=== PATIENT | male | born 1955 | race Asian ===

== ENCOUNTER 2020-05-03 21:38 | Emergency (ER) | payer MEDICARE ==
[~2020-05-03] VITALS: Ht 172.7 cm; Wt 63.5 kg
--- NOTE | 2020-05-03 21:50 | NUR ---
ED Nurse Note: ambulated to ed from home c/o 10 sharp right flank pain x 2 days. reports vomitting and "black" diarrhea. changed into gown; attached to moniotor. All safety measures met.
[2020-05-03 22:00] VITALS: BP 159/98
--- NOTE | 2020-05-03 22:00 | NUR ---
ED Nurse Note: IV access established. blood and urine collected; sent down to lab. Medicated as prescribed; patient tolerated well.
--- NOTE | 2020-05-03 22:07 | Emergency Room Report ---
History of Present Illness General Chief Complaint: Dyspnea/Respdistress Source: Patient Present Illness HPI This is a 65-year-old [place] male with a history of diabetes and hyperlipidemia. He presents with chief plaint of right flank pain. Onset for last 3 days. Is on and off but more severe in the last few hours. Pain is to the right flank. Pain is sharp. Pain is 8 out of 10. He has nausea and vomiting with this. No radiation of the pain. He has been taking Pepto-Bismol because of the vomiting. Now he is been having diarrhea which she described as dark. Denies any blood in his vomitus. No hematuria. No urinary complaint. No weakness. Nothing made it better. Any movement made it worse. Never had this problem before. 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 Patient History Past Medical History: see triage record, old chart reviewed, DM Past Surgical History: none Pertinent Family History: none Social History: Denies: drug use Immunizations: other Reviewed Nursing Documentation: PMH: Agreed; PSxH: Agreed Nursing Documentation-PMH Past Medical History: No Stated History Review of Systems Eye: Denies: eye pain, blurred vision ENT: Denies: ear pain, nose congestion, throat swelling Respiratory: Denies: cough, shortness of breath Cardiovascular: Denies: chest pain, palpitations Gastrointestinal: Reports: other - Flank pain; Denies: abdominal pain, diarrhea , nausea, vomiting Musculoskeletal: Denies: back pain, joint pain Skin: Denies: rash Neurological: Denies: headache, numbness Endocrine: Denies: increased thirst, increased urine Hematologic/Lymphatic: Denies: easy bruising All Other Systems: negative except mentioned in HPI Physical Exam Vital Signs Date Time Temp Pulse Resp B/P (MAP) Pulse Ox O2 Delivery O2 Flow Rate FiO2 05/03/20 21:44 98.4 66 19 159/98 (118) 96 Room Air Vitals with high blood pressure Sp02 EP Interpretation: reviewed, normal General Appearance: well appearing, no apparent distress, alert Head: normocephalic, atraumatic Eyes: bilateral eye PERRL, bilateral eye EOMI ENT: hearing grossly normal, normal pharynx Neck: full range of motion, supple, no meningismus Respiratory: chest non-tender, lungs clear, normal breath sounds Cardiovascular #1: regular rate, rhythm, no murmur Gastrointestinal: normal bowel sounds, non tender, no mass, no organomegaly, no bruit, non-distended Musculoskeletal: back normal, normal range of motion, gait/station normal Psychiatric: mood/affect normal Medical Decision Making Diagnostic Impression: Primary Impression: Ureteral calculus, right ER Course Patient presents with right flank pain. CT scan show a 6 mm right proximal ureteral stone. There is no evidence of any infection. No kidney failure. Pain is well controlled. Will discharge home with urology follow-up. His black stools probably secondary to the Pepto-Bismol. Hemoglobin is stable. No evidence of GI bleeding. CT/MRI/US Diagnostic Results CT/MRI/US Diagnostic Results : Imaging Test Ordered: CT abdomen pelvis Impression Read by radiologist. 6 mm mildly obstructing right proximal ureteral stone. Last Vital Signs Date Time Temp Pulse Resp B/P (MAP) Pulse Ox O2 Delivery O2 Flow Rate FiO2 05/03/20 21:44 98.4 66 19 159/98 (118) 96 Room Air Status: improved Disposition: HOME, SELF-CARE Condition: Stable Scripts Tamsulosin HCl (Flomax) 0.4 Mg Cap.er.24h 0.4 MG ORAL DAILY, #30 CAP Prov: Nicanor Arango MD 05/03/20 Hydrocodone/Acetaminophen 5-325* (HYDROCODONE/ACETAMINOPHEN 5-325*) 1 Each Tablet 1 TAB ORAL Q6H PRN for For Pain, #20 TAB 0 Refills Prov: Nicanor Arango MD 05/03/20 Additional Instructions: Increase fluids. Follow-up with your doctor within a week. You will need referral to see a urologist. Return if symptoms worsen or having fever. Nicanor Arango MD May 03, 2020 22:07
[2020-05-03] MEDS ORDERED: HYDROmorphone 1mg/ml Carpuject IVP ONE (22:15)
--- NOTE | 2020-05-03 22:23 | NUR ---
ED Nurse Note: Pt down to imaging with cardiac cath lab radiology technologist via [place].
[2020-05-03 22:33] LABS: BILIRUBIN, URINE NEGATIVE (NEGATIVE); COLOR,URINE PALE YELLOW; GLUCOSE, URINE (UA) 1+ (NEGATIVE); KETONES,URINE 2+ (NEGATIVE); LEUKOCYTE ESTERASE ,URINE NEGATIVE (NEGATIVE); NITRITE,URINE NEGATIVE (NEGATIVE); PH,URINE 6 (4.5-8.0); PROTEIN,URINE 1+ (NEGATIVE); UROBILINOGEN,URINE NORMAL MG/DL (0.0-1.0)
[2020-05-03 22:37] LABS: BASOPHILS % (AUTO) 1.2 % (0.0-2.0); EOSINOPHILS % (AUTO) 2.1 % (0.0-3.0); HEMATOCRIT 43.8 % (42.0-52.0); HEMOGLOBIN 14.5 G/DL (14.2-18.0); LYMPHOCYTES % (AUTO) 30.1 % (20.0-45.0); MEAN CORPUSCULAR VOLUME 95 FL (80-99); MONOCYTES % (AUTO) 7.5 % (1.0-10.0); NEUTROPHILS % (AUTO) 59.2 % (45.0-75.0); PLATELET COUNT 241 K/UL (150-450); RED BLOOD COUNT 4.61 M/UL (4.70-6.10); RED CELL DISTRIBUTION WIDTH 12.3 % (11.6-14.8); WHITE BLOOD COUNT 7.1 K/UL (4.8-10.8)
--- NOTE | 2020-05-03 22:39 | NUR ---
ED Nurse Note: patient back from ct. reattached to monitor. patient resting comfortably in bed. states decrease in pain 5/10
[2020-05-03 22:47] LABS: APPEARANCE,URINE SLIGHTLY CLOUDY
--- NOTE | 2020-05-03 22:53 | Diagnostic Imaging Report ---
EXAM: CT Abdomen and Pelvis Without Intravenous Contrast CLINICAL HISTORY: ABD PAIN TECHNIQUE: Axial computed tomography images of the abdomen and pelvis without intravenous contrast. CTDI is 4 mGy and DLP is 236 mGy-cm. One or more of the following dose reduction techniques were used: automated exposure control, adjustment of the mA and/or kV according to patient size, use of iterative reconstruction technique. Coronal and sagittal reformatted images were created and reviewed. COMPARISON: No relevant prior studies available. FINDINGS: Lung bases: Unremarkable. No mass. No consolidation. ABDOMEN: Liver: Unremarkable. Gallbladder and bile ducts: Unremarkable. No calcified stones. No ductal dilation. Pancreas: Unremarkable. No ductal dilation. Spleen: Unremarkable. No splenomegaly. Adrenals: Unremarkable. No mass. Kidneys and ureters: Mildly obstructing right proximal ureteral 0.6 cm stone. Stomach and bowel: Prominent colonic stool burden, which could be a cause for pain. Circumferential rectosigmoid and descending colon wall thickening could be due to nondistention or could represent an infectious or inflammatory colitis. Nondependent gastric wall thickening of uncertain significance, this could represent gastritis. Recommend outpatient endoscopy to exclude gastric neoplasm. PELVIS: Appendix: No findings to suggest acute appendicitis. Bladder: Unremarkable. No stones. Reproductive: Prostatomegaly 5.3 cm transverse. ABDOMEN and PELVIS: Intraperitoneal space: Unremarkable. No free air. No significant fluid collection. Bones/joints: No acute fracture. No dislocation. Soft tissues: Unremarkable. Vasculature: Unremarkable. No abdominal aortic aneurysm. Lymph nodes: Unremarkable. No enlarged lymph nodes. IMPRESSION: 1. Mildly obstructing right proximal ureteral 0.6 cm stone. 2. Circumferential rectosigmoid and descending colon wall thickening could be due to nondistention or could represent an infectious or inflammatory colitis. 3. Nondependent gastric wall thickening of uncertain significance, this could represent gastritis. Recommend outpatient endoscopy to exclude gastric neoplasm. 4. Prominent colonic stool burden, which could be a cause for pain. 5. Prostatomegaly 5.3 cm transverse.
[2020-05-03] MEDS ORDERED: Ketorolac 30mg Inj IV ONE (23:00)
[2020-05-03 23:05] LABS: ALANINE AMINOTRANSFERASE 29 U/L (12-78); ALBUMIN 3.6 G/DL (3.4-5.0); ALBUMIN/GLOBULIN RATIO 1.1 (1.0-2.7); ALKALINE PHOSPHATASE 90 U/L (46-116); ANION GAP 8 mmol/L (5-15); ASPARTATE AMINO TRANSFERASE 17 U/L (15-37); BILIRUBIN,TOTAL 0.2 MG/DL (0.2-1.0); BLOOD UREA NITROGEN 17 mg/dL (7-18); CALCIUM 8.5 MG/DL (8.5-10.1); CARBON DIOXIDE 27 MMOL/L (21-32); CHLORIDE 104 MMOL/L (98-107); POTASSIUM 4.2 MMOL/L (3.5-5.1); SODIUM 139 MMOL/L (136-145)
[2020-05-03] MEDS ORDERED: FLOMAX0.4 MG ORAL (23:35)
[2020-05-03] MEDS ORDERED: HYDROCODON-ACE1 EA15 ORAL (23:35)
--- NOTE | 2020-05-03 23:43 | NUR ---
ER DISCHARGE NOTE: Patient is cleared to be discharged per ERMD, pt is aox4, on room air, with stable vital signs. pt was given dc and prescription instructions, pt was able to verbalize understanding, pt id band and iv site removed without complications. pt is able to ambulate with steady gait. pt took all belongings.
[2020-05-03 23:44] VITALS: BP 124/76
== END 2020-05-03 23:44 | disposition home or self-care (01) ==
LOC: EMR 22:06
DX: N20.1 Calculus of ureter (principal); N40.0 Benign prostatic hyperplasia without lower urinary tract symptoms
CPT/HCPCS: 36415; 74176; 80053; 81003; 83690; 85025; 96361; 96374; 96375; 99284; J1170; J1885; J2405; J7030